=== PATIENT | male | born 1995 | race Caucasian/White ===

== ENCOUNTER 2016-12-01 14:54 | Emergency (ER) | payer OTHER ==
[2016-12-01] MEDS ORDERED: Bacitracin Oint 1 GM U/D Packet TOP ONE (15:05)
[2016-12-01] MEDS ORDERED: Diphtheria,Pertussis(Acell),Tetanus Vaccine 0.5 ML Syringe IM ONE (15:09)
[2016-12-01] MEDS ORDERED: Ketorolac 60 MG/2 ML SDV IM ONE (15:09)
--- NOTE | 2016-12-01 15:09 | EDM.PDOC ---
ED HPI GENERAL MEDICAL PROBLEM - General Chief Complaint: Laceration Stated Complaint: FALL Time Seen by Provider: 12/01/16 14:57 - History of Present Illness INITIAL COMMENTS - FREE TEXT/NARRATIVE: HISTORY AND PHYSICAL: History of present illness: The patient is a healthy 20-year-old male who presents after sustaining a fall while at work off of a trailer falling approximately 5 feet and hitting the back of his head. The patient states that prior to these events he was in his usual state of health without any systemic complaints and had no fever chills nausea vomiting chest pain or shortness of breath and was not dizzy or lightheaded. After the incident he hit the back of his head and felt somewhat dazed but does not believe he lost consciousness as he states that even though he was feeling dazed she could hear people talking. He denies any neck or back pain but has some tingling down his left upper extremity which is new. He has no weakness in his extremities and no pelvis pain abdominal pain lower extremity complaints. He does not feel nauseated nor has he had any vomiting. He came via EMS with c-collar in place. Patient is unsure of his last tetanus shot Review of systems: As per history of present illness and below otherwise all systems reviewed and negative. Past medical history: As per history of present illness and as reviewed below otherwise noncontributory. Surgical history: As per history of present illness and as reviewed below otherwise noncontributory. Social history: No reported history of drug or alcohol abuse. Family history: As per history of present illness and as reviewed below otherwise noncontributory. Physical exam: Gen.: Well-developed well-nourished man who is overweight speaks clearly and easily in the ED. C-collar is in place which was maintained after the exam. HEENT: Atraumatic throughout the scalp and the face with the exception of a left parieto-occipital laceration approximately 1.5 cm in length and some minimal soft tissue surrounding consistent with contusion and some abrasions in the same area of the scalp. There are no palpable bony deformities of the scalp/ skull and there is no facial swelling or bony deformities. EOMs are intact,, normocephalic, pupils reactive, negative for conjunctival pallor or scleral icterus, mucous membranes moist, throat clear, neck supple, nontender, trachea midline. TMs are normal bilaterally, there are no midline step-off since defects of the cervical spine. Lungs: Clear to auscultation, breath sounds equal bilaterally, chest nontender. Heart: S1S2, regular, negative for clicks, rubs, or JVD. Abdomen: Soft, nondistended, nontender. Negative for masses or hepatosplenomegaly. Negative for costovertebral tenderness. Pelvis: Stable nontender. Genitourinary: Deferred. Rectal: Deferred. Extremities: Atraumatic except for a very small circular superficial abrasion of the left elbow without any palpable bony deformities defects or swelling. Patient has full range of motion of all extremities without any defects or deficits in the legs are, negative for cords or calf pain. Neurovascular unremarkable. Neuro: Awake, alert, oriented. Cranial nerves II through XII unremarkable. Cerebellum unremarkable. Motor and sensory unremarkable throughout. Exam nonfocal. 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 I told him that if the tingling in his arm continued he would need to follow-up with neurology or primary care Procedure note: After LET was placed and the wound was cleansed by nursing I reevaluated and is approximately 1.5 cm laceration which is just through to the subcutaneous and is no active bleeding. Due to the nature of the laceration and the location 2 isa were placed to reapproximate the skin edges and the patient tolerated procedure well. Bacitracin was applied. There were no complications. Impression: Fall with no loss of consciousness and left parieto-occipital scalp laceration Definitive disposition and diagnosis as appropriate pending reevaluation and review of above. Left Posterior Head Pain Score (Numeric/FACES): 7 - Related Data Allergies Allergy/AdvReac Type Severity Reaction Status Date / Time No Known Allergies Allergy Verified 12/01/16 15:10 Home Meds: Home Meds . [No Known Home Meds] 12/01/16 [History] ED ROS GENERAL - Review of Systems Review Of Systems: ROS reveals no pertinent complaints other than HPI. ED EXAM, SKIN/RASH Exam: See Below (See dictation) Course - Vital Signs Last Recorded V/S: Last Vital Signs Temp 36.7 C 12/01/16 15:04 Pulse 109 H 12/01/16 15:40 Resp 16 12/01/16 15:40 BP 144/90 H 12/01/16 15:40 Pulse Ox 98 12/01/16 15:40 - Orders/Labs/Meds Orders: Active Orders 24 hr Category Date Time Status Communication Order [RC] STAT Care 12/01/16 15:10 Active Vaccines to be Administered [RC] PER UNIT ROUTINE Care 12/01/16 15:09 Active Meds: Medications Discontinued Medications Generic Name Dose Route Start Last Admin Trade Name Kris PRN Reason Stop Dose Admin Bacitracin 1 dose 12/01/16 15:05 12/01/16 15:42 Bacitracin Oint 1 Gm TOP 12/01/16 15:06 1 dose ONETIME ONE Administration Diphtheria/Tetanus/Acell Pertussis 0.5 ml 12/01/16 15:09 12/01/16 15:42 Adacel IM 12/01/16 15:10 0.5 ml .ONCE ONE Administration Ketorolac Tromethamine 60 mg 12/01/16 15:09 12/01/16 15:42 Toradol IM 12/01/16 15:10 60 mg ONETIME ONE Administration Lidocaine/Tetracaine 1 ml 12/01/16 15:10 12/01/16 15:41 Let Soln TOP 12/01/16 15:11 1 ml ONETIME ONE Administration Departure - Departure Time of Disposition: 16:45 Disposition: Home, Self-Care 01 Condition: Good Clinical Impression: Blunt head trauma Qualifiers: Encounter type: initial encounter Qualified Code(s): S09.8XXA - Other specified injuries of head, initial encounter Concussion Qualifiers: Encounter type: initial encounter Loss of consciousness presence/duration: without LOC Qualified Code(s): S06.0X0A - Concussion without loss of consciousness, initial encounter Scalp laceration Qualifiers: Encounter type: initial encounter Qualified Code(s): S01.01XA - Laceration without foreign body of scalp, initial encounter - Discharge Information Forms: ED Department Discharge Additional Instructions: The following information is given to patients seen in the emergency department who are being discharged to home. This information is to outline your options for follow-up care. We provide all patients seen in our emergency department with a follow-up referral. The need for follow-up, as well as the timing and circumstances, are variable depending upon the specifics of your emergency department visit. If you don't have a primary care physician on staff, we will provide you with a referral. We always advise you to contact your personal physician following an emergency department visit to inform them of the circumstance of the visit and for follow-up with them and/or the need for any referrals to a consulting specialist. The emergency department will also refer you to a specialist when appropriate. This referral assures that you have the opportunity for followup care with a specialist. All of these measure are taken in an effort to provide you with optimal care, which includes your followup. Under all circumstances we always encourage you to contact your private physician who remains a resource for coordinating your care. When calling for followup care, please make the office aware that this follow-up is from your recent emergency room visit. If for any reason you are refused follow-up, please contact the [facility] emergency department at and ask to speak to the emergency department charge nurse. [facility] Primary care- Internal Medicine [facility] [place] [address] Expect symptoms of headache and body aches and concussion for the next 1 day to 14 days. Use [id number] Tylenol or ibuprofen for pain. Keep the wound on her scalp clean and dry for the next 24 hours and then cleanse with mild soap and water pat dry and apply bacitracin or Neosporin for the next 2 days. After 2 days stop the ointment. The isa should be removed in 7-10 days. Please follow-up with your primary care physician further care and evaluation and return to the ER as needed as discussed. - My Orders Last 24 Hours: My Active Orders 12/01/16 15:09 Vaccines to be Administered [RC] PER UNIT ROUTINE 12/01/16 15:10 Communication Order [RC] STAT - Assessment/Plan Last 24 Hours: My Active Orders 12/01/16 15:09 Vaccines to be Administered [RC] PER UNIT ROUTINE 12/01/16 15:10 Communication Order [RC] STAT
[2016-12-01] MEDS ORDERED: Lidocaine/EPINEPHrine/Tetracaine Soln 1 ML TOP ONE (15:10)
--- NOTE | 2016-12-01 16:04 | CT ---
EXAMINATION: Non contrast CT head. Coronal and sagittal reformats. HISTORY: Pain FINDINGS: No evidence of intra or extra axial hemorrhage, mass, midline shift, hydrocephalus or edema. No hypoattenuation changes in the major vascular territories to suggest acute infarct. No abnormal intracranial calcifications are detected. No evidence of substantial vascular calcifica tions. Paranasal sinuses and mastoid air cells are well aerated without substantial findings. Pituitary fossa appears unremarkable. There is a soft tissue hematoma within the left parietal regio n. Calvarium is intact. No evidence of skull fracture. IMPRESSION: No acute intracranial findings.
--- NOTE | 2016-12-01 16:10 | CT ---
EXAMINATION: CT cervical spine without contrast. HISTORY: Pain COMPARISON: None TECHNIQUE: Axial CT images obtained through the cervical spine without contrast.Coronal and sagittal reconstructions obtained. FINDINGS: There is straightening of the normal cervical lordosis, likely accentuated by positioning. The vertebral body heights and disc spaces are grossly maintained. No fracture or acute osseous abn ormality noted. Bone mineralization appears normal. Mild marginal osteophytes noted at C5-C6. The vertebral soft tissues appear normal. The lung apices are grossly clear. IMPRESSION: Mild degenerative changes without acute findings.
== END 2016-12-01 17:23 | disposition home or self-care (01) ==
LOC: MW.ED 14:54
DX: S06.0X0A Concussion without loss of consciousness, initial encounter (principal); S01.01XA Laceration without foreign body of scalp, initial encounter; S50.312A Abrasion of left elbow, initial encounter; W17.89XA Other fall from one level to another, initial encounter; Y92.69 Other specified industrial and construction area as the place of occurrence of the external cause; Y99.0 Civilian activity done for income or pay; Z23 Encounter for immunization
CPT/HCPCS: 12001; 70450; 72125; 90471; 90715; 96372; 99284; J1885